=== PATIENT | male | born 1970 | race Caucasian/White ===

== ENCOUNTER 2021-06-28 02:49 | Observation (INO) ==
[2021-06-28] MEDS ORDERED: Ipratropium/Albuterol Neb 3 ML IH ONE (03:06)
[2021-06-28] MEDS ORDERED: methylPREDNISolone 125 MG/2 ML VIAL IVP ONE (03:06)
[2021-06-28 03:45] LABS: Basophils % 0.4 %; Eosinophils # 0.5 K/mcL (0.0-0.6); Eosinophils % 4.5 %; Hematocrit 43.5 % (37.5-50.1); Immature Granulocytes % 0.3 % (0-4); Lymphocytes % 21.9 %; Mean Corpuscular HGB Conc 34.5 g/dL (31.6-35.5); Mean Corpuscular Hemoglobin 32.5 pg (28.0-33.3); Mean Corpuscular Volume 94.2 fL (83.0-100.0); Mean Platelet Volume 11.6 fL (9.4-12.4); Monocytes # 0.9 K/mcL (0.0-1.3); Monocytes % 7.8 %; Neutrophils # 7.3 K/mcL (1.6-8.9); Platelet Count 239 K/mcL (140-400); Red Blood Count 4.62 M/mcL (4.19-5.50); Red Cell Distribution Width 13.3 % (11.5-14.5); Segmented Neutrophils % 65.1 %; White Blood Count 11.2 K/mcL (4.3-11.1)
[2021-06-28 03:46] LABS: INR 1.9; Prothrombin Time 20.6 Seconds (9.4-12.1)
[2021-06-28 03:49] LABS: Activated Partial Thrombo Time 35.3 Seconds (26.0-36.0)
[2021-06-28 03:51] LABS: Lymphocytes # 2.5 K/mcL (0.6-4.6)
[2021-06-28 04:00] LABS: Alanine Aminotransferase 10 Units/L (7-52); Albumin 3.8 g/dL (3.5-5.7); Albumin/Globulin Ratio 1.6 (1.1-2.2); Alkaline Phosphatase 64 Units/L (34-104); Aspartate Amino Transferase 10 Units/L (13-39); BUN/Creatinine Ratio 10 (6-26); Bilirubin,Direct 0.1 mg/dL (0.0-0.2); Bilirubin,Indirect 1.6 mg/dL (0.0-1.0); Bilirubin,Total 1.7 mg/dL (0.3-1.0); Blood Urea Nitrogen 9 mg/dL (6-20); Calcium 8.7 mg/dL (8.6-10.3); Carbon Dioxide 28 mEq/L (23-29); Chloride 103 mEq/L (98-107); Globulin 2.4 g/dL (2.4-3.5); Glucose 138 mg/dL (70-105); Osmolality,Calculated 297 (280-300); Potassium 3.3 mEq/L (3.5-5.1); Sodium 143 mEq/L (136-145); Total Protein 6.2 g/dL (6.4-8.9); Troponin I < 0.03 ng/mL (< 0.04); eGFR For African Americans > 60 (> 60); eGFR For Non-African Americans > 60 (> 60)
[2021-06-28] MEDS ORDERED: Azithromycin 250 MG TABLET PO ONE (04:54)
[2021-06-28] MEDS ORDERED: Albuterol 2.5 MG/3 ML NEBULIZER IH ONE (04:54)
[2021-06-28] MEDS ORDERED: MethylPREDNISolone 40 MG/ML VIAL IVP SCH ×2 (12:00→18:00)
[2021-06-28] MEDS ORDERED: Benzonatate 100 MG CAPSULE PO PRN ×2 (12:00→13:39)
[2021-06-28] MEDS ORDERED: Azithromycin 500 MG in 0.9 % Sodium Chloride 250 ML IVPB SCH ×2 (13:00→14:00)
[2021-06-28] MEDS ORDERED: Naloxone 0.4 MG/ML INJ IVP PRN (13:39)
[2021-06-28] MEDS ORDERED: Melatonin 3 MG TABLET PO PRN (13:39)
[2021-06-28] MEDS ORDERED: Furosemide 20 MG TABLET PO SCH (13:39)
[2021-06-28] MEDS ORDERED: MOM Conc 10 ML UD.LIQ PO PRN (13:39)
[2021-06-28] MEDS ORDERED: Ondansetron 4 MG/2 ML VIAL IVP PRN (13:39)
[2021-06-28] MEDS ORDERED: Nitroglycerin 0.4 MG TAB.SUBL SL PRN (13:39)
[2021-06-28] MEDS ORDERED: Albuterol 2.5 MG/3 ML NEBULIZER IH PRN (13:39)
[2021-06-28] MEDS ORDERED: Mag Hydrox/Al Hydrox/Simeth 30 ML UDC PO PRN (13:39)
[2021-06-28] MEDS ORDERED: Ipratropium/Albuterol Neb 3 ML IH PRN (13:39)
[2021-06-28] MEDS ORDERED: Nicotine 21 MG PATCH.TD24 TD SCH (13:45)
[2021-06-28] MEDS: lisinopriL 20 MG TABLET PO SCH (15:43)
[2021-06-28] MEDS: Famotidine 20 MG TABLET PO SCH (15:44)
[2021-06-28] MEDS: Isosorbide MONOnitrate (24 HR) 60 MG TAB.ER.24H PO SCH (15:45)
[2021-06-28] MEDS: 0.9 % Sodium Chloride 1,000 ML IVC SCH (15:45)
[2021-06-28] MEDS: Nicotine 21 MG PATCH.TD24 TD SCH (15:47)
[2021-06-28] MEDS: cefTRIAXone 2,000 MG in 0.9 % Sodium Chloride Mini Bag 100 ML IVPB SCH (15:47)
[2021-06-28] MEDS ORDERED: *HR* Rivaroxaban 10 MG TABLET PO SCH (17:00)
[2021-06-28] MEDS ORDERED: *HR* Rivaroxaban 15 MG TABLET PO SCH (17:00)
[2021-06-28] MEDS: carvediloL 6.25 MG TABLET PO SCH (17:54)
[2021-06-28] MEDS: MethylPREDNISolone 40 MG/ML VIAL IVP SCH (17:54)
[2021-06-28] MEDS: *HR* Rivaroxaban 15 MG TABLET PO SCH (17:54)
[2021-06-28 20:59] LABS: Adenovirus Not Detected (Not Detect); Bordetella Pertussis Not Detected (Not Detect); Chlamydophila pneumoniae Not Detected (Not Detect); Coronavirus 229E Not Detected (Not Detect); Coronavirus HKU1 Not Detected (Not Detect); Coronavirus NL63 Not Detected (Not Detect); Coronavirus OC43 Not Detected (Not Detect); Human Metapneumovirus Not Detected (Not Detect); Human Rhinovirus/Enterovirus Not Detected (Not Detect); Influenza A Subtype 2009 H1 Not Detected (Not Detect); Influenza B Not Detected (Not Detect); Mycoplasma pneumoniae Not Detected (Not Detect); Parainfluenza Virus 1 Not Detected (Not Detect); Parainfluenza Virus 2 Not Detected (Not Detect); Parainfluenza Virus 3 Not Detected (Not Detect); Parainfluenza Virus 4 Not Detected (Not Detect); Respiratory Syncytial Virus Not Detected (Not Detect); SARS-CoV-2 Not Detected (Not Detect)
[2021-06-28] MEDS ORDERED: rOPINIRole 1 MG TABLET PO SCH (21:00)
[2021-06-28] MEDS ORDERED: Budesonide/Formoterol 160/4.5 1 PUFF INH IH SCH (22:00)
[2021-06-28] MEDS: Budesonide/Formoterol 160/4.5 1 PUFF INH IH SCH (22:34)
[2021-06-29] MEDS: MethylPREDNISolone 40 MG/ML VIAL IVP SCH ×3 (01:31→10:25)
[2021-06-29] MEDS: 0.9 % Sodium Chloride 1,000 ML IVC SCH (01:31)
[2021-06-29] MEDS: Famotidine 20 MG TABLET PO SCH ×2 (01:49→10:25)
[2021-06-29] MEDS: Ranolazine 500 MG TAB.ER.12H PO SCH ×2 (01:49→10:25)
[2021-06-29 07:53] VITALS: O2SAT 96
[2021-06-29] MEDS ORDERED: Azithromycin 500 MG in 0.9 % Sodium Chloride 250 ML IVPB SCH ×2 (08:00→14:00)
[2021-06-29] MEDS ORDERED: Aspirin 81 MG TAB.CHEW PO SCH (09:00)
[2021-06-29 09:18] LABS: Basophils % 0.1 %; Hematocrit 42.3 % (37.5-50.1); Hemoglobin 13.9 g/dL (12.9-16.9); Immature Granulocytes % 0.3 % (0-4); Lymphocytes # 1.1 K/mcL (0.6-4.6); Lymphocytes % 9.1 %; Mean Corpuscular HGB Conc 32.9 g/dL (31.6-35.5); Mean Corpuscular Hemoglobin 32.3 pg (28.0-33.3); Mean Corpuscular Volume 98.1 fL (83.0-100.0); Mean Platelet Volume 11.3 fL (9.4-12.4); Monocytes # 0.3 K/mcL (0.0-1.3); Monocytes % 2.6 %; Neutrophils # 10.2 K/mcL (1.6-8.9); Platelet Count 224 K/mcL (140-400); Red Blood Count 4.31 M/mcL (4.19-5.50); Red Cell Distribution Width 13.2 % (11.5-14.5); Segmented Neutrophils % 87.9 %; White Blood Count 11.6 K/mcL (4.3-11.1)
[2021-06-29 09:48] LABS: BUN/Creatinine Ratio 24 (6-26); Blood Urea Nitrogen 20 mg/dL (6-20); Calcium 8.6 mg/dL (8.6-10.3); Carbon Dioxide 30 mEq/L (23-29); Chloride 107 mEq/L (98-107); Glucose 134 mg/dL (70-105); Osmolality,Calculated 303 (280-300); Potassium 3.8 mEq/L (3.5-5.1); Sodium 144 mEq/L (136-145); eGFR For African Americans > 60 (> 60); eGFR For Non-African Americans > 60 (> 60)
[2021-06-29] MEDS: cefTRIAXone 2,000 MG in 0.9 % Sodium Chloride Mini Bag 100 ML IVPB SCH (10:24)
[2021-06-29] MEDS: lisinopriL 20 MG TABLET PO SCH (10:25)
[2021-06-29] MEDS: Isosorbide MONOnitrate (24 HR) 60 MG TAB.ER.24H PO SCH (10:25)
[2021-06-29] MEDS: *HR* Rivaroxaban 15 MG TABLET PO SCH (10:26)
[2021-06-29] MEDS: Nicotine 21 MG PATCH.TD24 TD SCH (10:26)
[2021-06-29] MEDS: carvediloL 6.25 MG TABLET PO SCH (10:26)
[2021-06-29] MEDS: Budesonide/Formoterol 160/4.5 1 PUFF INH IH SCH (12:00)
[2021-06-29 12:14] VITALS: BP 126/80; PULSE 83; RESP 16; TEMP 98.5
== END 2021-06-29 16:05 | disposition home or self-care (01) ==
LOC: EMEROOPIK 02:49 → INPPIK 02:49
PROVIDERS: ADMIT Family Medicine; ATTEND Family Medicine